=== PATIENT | female | born 1985 | race Hispanic/Latino ===

== ENCOUNTER 2022-02-03 18:31 | Emergency (ER) | payer SELFPAY ==
[~2022-02-03] VITALS: Ht 154.9 cm; Wt 79.4 kg
[2022-02-03] MEDS ORDERED: SODIUM CHLORIDE 0.9% 1000ML 1,000 ML IV STA (18:49)
[2022-02-03] MEDS ORDERED: KETOROLAC TROMETHAMINE 30 MG/ML VIAL IV ONE (19:00)
[2022-02-03] MEDS ORDERED: FAMOTIDINE 20 MG/2 ML VIAL IV ONE (19:00)
[2022-02-03] MEDS ORDERED: ONDANSETRON HCL INJ 2MG/ML 2ML 2 MG/ML VIAL IV ONE (19:00)
[2022-02-03] MEDS ORDERED: FAMOTIDINE20 MG PO (19:33)
[2022-02-03] MEDS ORDERED: CEFDINIR300 MG PO (19:33)
[2022-02-03] MEDS ORDERED: PROBIOTIC 2 BI1 EACH PO (19:33)
[2022-02-03] MEDS ORDERED: ONDANSETRON ODT4 MG PO (19:33)
[2022-02-03] MEDS ORDERED: CEFTRIAXONE 1 GM VIAL IV SCH (21:00)
== END 2022-02-03 20:05 | disposition home or self-care (01) ==
LOC: FSED 18:48
DX: R11.2 Nausea with vomiting, unspecified (principal); N39.0 Urinary tract infection, site not specified
CPT/HCPCS: 80053; 81003; 81025; 85025; 96374; 96375; 96376; 99283